=== PATIENT | male | born 2000 | race Caucasian/White ===

== ENCOUNTER 2025-02-11 15:41 | Emergency (ER) | payer OTHER, SELFPAY ==
[2025-02-11 15:51] VITALS: BP 155/97
[2025-02-11 16:10] LABS: % Basophils 0.4 % (0-2); % Eosinophils 3.2 % (0-6); % Immature Granulocytes 0.4 % (0-0.5); % Lymphocytes 23.6 % (20.5-51.1); % Neutrophils 63.4 % (42.2-75.2); Absolute Basophils 0.1 10^3/uL (0-0.2); Absolute Eosinophils 0.4 10^3/uL (0-0.7); Absolute Lymphocytes 2.6 10^3/uL (1.2-3.4); Absolute Neutrophils 7.1 10^3/uL (1.4-6.5); Hematocrit 43.2 % (39.0-52.0); Hemoglobin 14.8 g/dL (13.0-18.0); Mean Corp Hgb Conc. 34.3 g/dL (33.0-37.0); Mean Corpuscular Hgb 29.6 pg (27.0-31.0); Mean Corpuscular Volume 86.4 fL (80.0-94.0); Mean Platelet Volume 9.3 fL (7.4-10.4); Nucleated Red Blood Cells % 0 % (-); Platelet Count 296 10^3/uL (130-400); Red Cell Dist. Width 12.5 % (11.5-14.5); White Blood Cell Count 11.1 10^3/uL (4.8-10.8)
[2025-02-11 16:19] LABS: ALT (SGPT) 19 U/L (0-50); AST (SGOT) 20 U/L (17-59); Albumin 4.4 g/dl (3.5-5.0); Alkaline Phosphatase 58 U/L (38-126); Blood Urea Nitrogen 17 mg/dl (9-20); Calcium 9.4 mg/dl (8.4-10.2); Carbon Dioxide 30 mmol/L (22-30); Chloride 105 mmol/L (98-107); Glucose 78 mg/dl (70-99); Sodium 142 mmol/L (135-145); Total Bilirubin 1.2 mg/dl (0.2-1.3); Total Protein 7.6 g/dl (6.3-8.2); eGFR > 60.00
[2025-02-11 18:28] VITALS: BP 128/84; BMI 28.4
[2025-02-11 18:30] VITALS: BP 128/84
[2025-02-11 19:00] VITALS: BP 117/86
--- NOTE | 2025-02-11 19:07 | ED.GENMED ---
History of Present Illness
General
Chief Complaint: Seizure
Time Seen by Provider: 02/11/25 19:02
History of Present Illness
History of Present Illness:
TIME OF INITIAL ENCOUNTER: 7:10 PM
HPI: Yesterday, after sitting for a while playing video games, the patient stood up, stretched, shook, was 'in and out of consciousness' had vision change, which all lasted for about 15 seconds. In the past when he has stretched he has had very
brief episodes of shaking but not this back. He was concerned about the possibly of seizure activity however did not definitively lose consciousness fully. He has been having a headache since that time which resolved after [id number]
medication yesterday temporarily. He also reports a chronic ongoing 'essential tremor'. He is also concerned of a mass that he can palpate in the right calf. He feels that he is well-hydrated. He also states that he is getting over a virus.
EXAM:
GENERAL: Well appearing in no distress
HEENT: Moist oral mucosa
CARDIOVASCULAR: No murmurs, borderline tachycardic heart rate, regular rhythm, No chest wall tenderness
PULMONARY: No respiratory distress, breath sounds are clear and equal
ABDOMEN: Soft with no peritoneal signs, no tenderness
NEUROLOGIC: Excellent strength all extremities, no coordination deficits, no tremor, normal finger-nose testing
PSYCHIATRIC: Appropriate mental status, normal insight and judgement
EXTREMITIES: Hypertrophied muscle in the right calf region with no clinical evidence for DVT and no palpable definitive mass
SKIN: No rash, no lesions
NUMBER AND COMPLEXITY OF PROBLEMS ADDRESSED AT THE ENCOUNTER
� Chronic conditions affecting care: Asthma, ADHD
� Acute Exacerbation and/or Progression of Chronic Illness: This is an acute problem
� Differential Diagnosis includes: Vasovagal event, seizure unlikely, dehydration, viral syndrome
AMOUNT AND/OR COMPLEXITY OF DATA TO BE REVIEWED AND ANALYZED
� I performed an independent evaluation of and my interpretation is:
EKG: Sinus 75, left axis deviation, no acute ST abnormality
CT: CAT scan of the brain shows no acute abnormality
X-rays:
Laboratory Studies: White count 1.1, hemoglobin normal, chemistries unremarkable
Other: Ultrasound shows no masses
� Review of other/old records: No old records available for review in [facility]
� Clinical information was obtained by an independent historian: I spoke to parents at bedside
� Prescriptions/Medications Considered but not given:
� Further testing considered but not performed:
RISK OF COMPLICATIONS AND/OR MORBIDITY OR MORTALITY OF PATIENT MANAGEMENT
� Social determinants of health affecting care: Lives at home
� Discussion with other providers:
� Escalation of care including admission/observation vs risk of discharge considered: Basic blood work unremarkable. He has a normal neurologic examination however given associated headache with at least questionable neurologic
symptoms, CT imaging obtained. Will also obtain ultrasound regarding the patient's concern for the right calf abnormality.
ANY OTHER UPDATES:
9:12 PM: I reassessed patient. He continues to have a nonfocal neurologic examination with an unremarkable ED workup. I have also given the contact information for local ENT.
Phy Exam
Physical Exam
Physical Exam:
See HPI
Course
Orders/Labs/Results
Orders:
Orders
02/11/25 15:58
Complete Blood Count/With Diff Urgent
Comprehensive Metabolic Panel Urgent
02/11/25 19:17
Electrocardiogram (*1) Urgent
Reason for Study: Vertigo / Dizzy
CT Head W/o Iv Contrast Urgent
Comment:
Reason For Exam: ORTEGA near syncope disoriented tremor
EKG- Treatment ONCE
US Non Vasc LOWER Ext RT Urgent
Reason For Exam: eval R calf mass
Abnormal Lab Results
02/11/25
15:58
WBC 11.1 H 10^3/uL
(4.8-10.8)
Absolute Neuts (auto) 7.1 H 10^3/uL
(1.4-6.5)
Absolute Monos (auto) 1.0 H 10^3/uL
(0.1-0.6)
02/11/25 15:58
02/11/25 15:58
Vital Signs
Initial and Last Documented VS:
Initial Vital Signs
Temp Pulse Resp BP Pulse Ox
37.1 C 92 18 155/97 97
02/11/25 15:51 02/11/25 15:51 02/11/25 15:51 02/11/25 15:51 02/11/25 15:51
Last Documented Vital Signs
Temp Pulse Resp BP Pulse Ox
36.4 C 91 20 117/86 98
02/11/25 18:30 02/11/25 19:30 02/11/25 19:30 02/11/25 19:00 02/11/25 19:30
*Critical Care Note
Total Time (30-74mins, 75-104mins- exclusive of procedures): Not Applicable
ED Attending Note
-
Portions of this chart may have been created with voice recognition software.� Occasional wrong word or��sound alike� substitutions may have occurred due to the inherent limitations of voice recognition software.
Discharge Plan
Departure
Patient Disposition: Home (Routine Discharge)
Date of Disposition: 02/11/25
Time of Disposition: 21:18
Patient with high blood pressure during this ER visit?: Yes
Discharge Problem:
Near syncope
Instructions: Near Fainting (DC), BLOOD PRESSURE
Prescriptions:
No Action
No Current Medications
0
Referrals:
Ellie Martinez PA-C [Family Provider] -
Cristofer Buitrago MD [Active] - Follow up in 5-7 days
Activity Restrictions/Additional Instructions:
CAT scan of the brain shows no acute abnormality. Some sinus disease is noted. Also, given the associated dizziness I think would be reasonable to see an ENT doctor such as Dr. Buitrago. Basic blood work is unremarkable. Ultrasound shows no
abnormality at the right calf however if symptoms persist you could talk to your primary care doctor about maybe obtaining an MRI. Return here if worse or other concerns.
Interventions
Interventions:
*Risk Screen - Suicide Last Done: 02/11/25 15:51
*General Assessment Last Done: 02/11/25 15:51
*Neglect/Abuse Screening Last Done: 02/11/25 15:51
*ED- Fall Risk Assessment Last Done: 02/11/25 18:30
*ED COVID-19 Vaccine History Last Done: 02/11/25 15:51
ED- Cardiac Assessment Last Done: 02/11/25 18:30
ED- Neurological Assessment Last Done: 02/11/25 18:30
ED- Pulmonary Assessment Last Done: 02/11/25 18:30
Discharge Date and Time
Print Language: PERSIAN
[2025-02-11 21:35] VITALS: BP 122/84
== END 2025-02-11 21:38 | disposition home or self-care (01) ==
LOC: EMR 15:41
PROVIDERS: Student in an Organized Health Care Education/Training Program; EMERGENCY PHYSICIAN Emergency Medicine; FAMILY PHYSICIAN Physician Assistant
DX: R55 Syncope and collapse (principal); J32.9 Chronic sinusitis, unspecified; R22.41 Localized swelling, mass and lump, right lower limb
CPT/HCPCS: 99284; 70450; 76882; 80053; 85025; 93005